=== PATIENT | female | born 1975 | race Caucasian/White ===

== ENCOUNTER 2018-11-13 18:34 | Emergency (ER) | payer SELFPAY ==
[~2018-11-13] VITALS: Ht 165.1 cm; Wt 58.1 kg
[2018-11-13 19:03] LABS: BASOPHILS # (AUTO) 0.04 x10^3/uL (0-0.1); BASOPHILS % (AUTO) 1 % (0-1); EOSINOPHILS # (AUTO) 0.04 x10^3/uL (0-0.4); EOSINOPHILS % (AUTO) 1 % (1-7); LYMPHOCYTES # (AUTO) 1.48 x10^3/uL (1-3.4); LYMPHOCYTES % (AUTO) 33 % (22-44); MD NO; MEAN CORPUSCULAR HEMOGLOBIN 30.2 pg (27.0-34.8); MEAN CORPUSCULAR HGB CONC 32.6 g/dL (32.4-35.8); MEAN CORPUSCULAR VOLUME 92.6 fL (80-100); MEAN PLATELET VOLUME 7.2 fL (7.4-10.4); MONOCYTES # (AUTO) 0.48 x10^3/uL (0.2-0.8); MONOCYTES % (AUTO) 11 % (2-9); NEUTROPHILS # (AUTO) 2.47 x10^3/uL (1.8-6.8); NEUTROPHILS % (AUTO) 55 % (42-75); PLATELET COUNT 311 x10^3/uL (130-400); RED BLOOD COUNT 4.72 x10^6/uL (3.82-5.3); RED CELL DISTRIBUTION WIDTH 12.9 % (9.6-15.2)
[2018-11-13 19:16] LABS: ALBUMIN 4.4 g/dL (3.4-5.0); ANION GAP 12 mmol/L (5-15); CALCIUM 8.9 mg/dL (8.5-10.1); CHLORIDE 101 mmol/L (98-107); CREATININE 0.69 mg/dL (0.55-1.02)
--- NOTE | 2018-11-13 19:40 | NUR ---
PT IS NOT IN LOBBY
--- NOTE | 2018-11-13 19:49 | NUR ---
PT REFUSED ESOPHAGRAM/ CANNOT SWALLOW
--- NOTE | 2018-11-13 20:30 | NUR ---
PT RESTING IN [facility]. PT IN [facility]. AWAITING ERP EVAL.
[2018-11-13] MEDS ORDERED: LORazepam 2 MG/ML, 1ML IM ONE (21:30)
[2018-11-13] MEDS ORDERED: LORazepam 2 MG/ML, 1ML ONE (21:50)
--- NOTE | 2018-11-13 21:55 | NUR ---
PT MEDICATED FOR ANXIETY BEFORE ORDERED PROCEDURE.
[2018-11-13] MEDS ORDERED: OMNIPAQUE 350 MG/ML, 150 ML BOTTLE ONE (22:30)
[2018-11-13 23:16] VITALS: BP 107/64
== END 2018-11-13 23:18 | disposition home or self-care (01) ==
LOC: ED 23:12
DX: R10.31 Right lower quadrant pain (principal); R10.30 Lower abdominal pain, unspecified; R13.10 Dysphagia, unspecified
CPT/HCPCS: 36415; 71046; 74220; 80048; 82040; 85025; 96372; 99284; J2060; Q9967